=== PATIENT | female | born 1955 | race American Indian/Alaskan Native ===

== ENCOUNTER 2018-11-23 10:02 | Outpatient (CLI) | payer OTHER | END 2018-11-23 10:03 | disposition home or self-care (01) | LOC: LABHHL 10:02 | PROVIDERS: ATTEND Surgery | DX: D36.0 Benign neoplasm of lymph nodes (principal) | CPT/HCPCS: 88184; 88185; 88305 ==

== ENCOUNTER 2018-12-01 14:28 | Outpatient (CLI) | payer OTHER | END 2018-12-01 14:29 | disposition home or self-care (01) | LOC: LABHHL 14:28 | PROVIDERS: ATTEND Surgery | DX: D36.0 Benign neoplasm of lymph nodes (principal) | CPT/HCPCS: 88305 ==

== ENCOUNTER 2020-09-20 15:13 | Outpatient (CLI) | payer OTHER ==
--- NOTE | 2020-09-20 17:28 | Mammography Report ---
RIGHT DIGITAL DIAGNOSTIC MAMMOGRAM WITH CAD CONVENTIONAL, 09/20/2020 RIGHT LIMITED BREAST ULTRASOUND CLINICAL INFORMATION / INDICATION: Patient presents for evaluation of intermittent right nipple retra ction. TECHNIQUE: Digital right mammographic imaging was performed. Limited ultrasound was performed. This e xamination was interpreted with the benefit of Computer-Aided Detection (CAD) analysis. COMPARISON: Prior mammograms 03/09/2020 and 03/08/2019 FINDINGS: Breast Density: There are scattered areas of fibroglandular density. MAMMOGRAPHIC FINDINGS: No dominant mass, suspicious calcifications, or architectural distortion in th e right breast. There has been no significant change compared with the prior examinations. There is n o mammographic abnormality to account for reported right nipple inversion, therefore targeted subareo lar ultrasound was subsequently performed. ULTRASOUND FINDINGS: Targeted ultrasound evaluation was performed of the area of interest. Targeted ultrasound of the subareolar right breast reveals a 5 mm benign cyst. No suspicious sonographic abno rmality identified. IMPRESSION: 1. No mammographic or sonographic abnormality to account for reported intermittent right nipple inver sanaz, therefore clinical correlation is recommended. If there is ongoing clinical concern, a breast M RI could be performed. Follow up recommendation: Back to schedule. BI-RADS Category 2: Benign. A "normal" or negative report should not discourage follow up or biopsy of a clinically significant f inding. A written summary of these findings will be mailed to the patient. The patient will be entered into a mammography reporting system which will generate a reminder letter for the patient's next appointmen t at the appropriate interval. According to the [employer], yearly mammograms are recommended starting at age 40 and continuing as long as a woman is in good health. Breast MRI is recommended for women with an pedro roximately 20-25% or greater lifetime risk of breast cancer, including women with a strong family his tory of breast or ovarian cancer and women who have been treated for Hodgkin's disease. Signer Name: Marisol Jaquez MD Signed: 09/20/2020 5:24 PM Workstation Name: [id number]
== END 2020-09-20 15:14 | disposition home or self-care (01) ==
LOC: SPVWC 15:13
PROVIDERS: ATTEND Surgery
DX: N60.01 Solitary cyst of right breast (principal); N64.59 Other signs and symptoms in breast